=== PATIENT | female | born 1985 | race Hispanic/Latino ===

== ENCOUNTER 2017-05-05 10:32 | Inpatient (IN) | payer MEDICAID, OTHER ==
[2017-05-05 11:17] LABS: BASO % 0.6 % (0.0-2.0); EOS % 0.5 % (0.0-4.0); HEMATOCRIT 41.8 % (34.0-47.0); LYMPH % 17.4 % (20.0-40.0); MEAN CORPUSCULAR HEMOGLOBIN 31.2 pg (27.0-31.0); MEAN CORPUSCULAR HGB CONC 34.7 g/dL (33.0-37.0); MEAN PLATELET VOLUME 7.8 fL (7.2-11.7); MONO # 0.3 K/uL (0.0-0.8); MONO % 6.1 % (0.0-10.0); RED CELL DISTRIBUTION WIDTH 12.8 % (11.5-14.5); WHITE BLOOD COUNT 5.6 K/uL (4.8-10.8)
[2017-05-05 11:29] LABS: ALB/GLOB RATIO 1.5 (1.0-2.1); ALCOHOL SERUM < 10 mg/dl (0-10); ALKALINE PHOSPHATASE 53 U/L (38-126); ALT/SGPT 29 U/L (9-52); AST/SGOT 22 U/L (14-36); BILIRUBIN,TOTAL 0.4 mg/dL (0.2-1.3); BLOOD UREA NITROGEN 10 mg/dL (7-17); CALCIUM 10.3 mg/dl (8.6-10.4); CARBON DIOXIDE 26 mmol/L (22-30); CHLORIDE 101 mmol/L (98-107); GFR AFRICAN-AMERICAN > 60; GLUCOSE,RANDOM 89 mg/dL (65-105); POTASSIUM 3.9 mmol/L (3.6-5.2); SODIUM 144 mmol/L (132-148); TOTAL PROTEIN 8.3 g/dL (6.3-8.3)
[2017-05-05 11:31] LABS: RBC URINE 15 /hpf (0-3); URINE BACTERIA RARE (<OCC); URINE BILIRUBIN NEGATIVE (NEGATIVE); URINE BLOOD 2+ (NEGATIVE); URINE COLOR Yellow (YELLOW); URINE GLUCOSE (UA) NORMAL (Normal); URINE KETONE NEGATIVE (NEGATIVE); URINE LEUKOCYTE ESTERASE 2+ Leu/uL (Negative); URINE PROTEIN NEGATIVE (NEGATIVE); URINE UROBILINOGEN NORMAL mg/dL (0.2-1.0); WBC URINE 10 /hpf (0-5)
--- NOTE | 2017-05-05 12:09 | C.PDOC ---
History Of Present Illness 31 y/o female presents to ED requesting detox from heroin, alcohol, and Xanax. Notes that last use was yesterday. (+)nausea (+)urinary frequency. Of note, pt states that she was recently treated for UTI. Otherwise, denies any dysuria, hematuria, back pain, abdominal pain, vomiting, diarrhea, fever, chest pain, or shortness of breath. Time Seen by Provider: 05/05/17 10:49 Chief Complaint (Nursing): Substance Abuse History Per: Patient History/Exam Limitations: no limitations Onset/Duration Of Symptoms: Gradual Current Symptoms Are (Timing): Still Present Suicide/Self Injury Attempted (Context): None Modifying Factor(s): Alcohol, Other (Xanax, heroin) Severity: None Pain Scale Rating Of: 0 Associated Symptoms: denies: Suicidal Thoughts, Suicidal Plan Involuntary Hold By: None Recent travel outside of the [place]: No Additional History Per: Patient Past Medical History Reviewed: Historical Data, Nursing Documentation, Vital Signs Vital Signs: Last Vital Signs Temp 98.0 F 05/05/17 10:35 Pulse 82 05/05/17 10:35 Resp 18 05/05/17 10:35 BP 112/74 05/05/17 10:35 Pulse Ox 100 05/05/17 12:24 - Medical History PMH: Anxiety, Seizures (DUE TO XANAX W/D) Family History: States: No Known Family Hx - Social History Hx Alcohol Use: Yes Hx Substance Use: Yes - Immunization History Hx Tetanus Toxoid Vaccination: No Hx Influenza Vaccination: No Hx Pneumococcal Vaccination: No Review Of Systems Constitutional: Negative for: Fever, Chills Cardiovascular: Negative for: Chest Pain, Palpitations, Light Headedness Respiratory: Negative for: Cough, Shortness of Breath Gastrointestinal: Positive for: Nausea. Negative for: Vomiting, Abdominal Pain , Diarrhea Genitourinary: Positive for: Frequency. Negative for: Dysuria, Incontinence, Hematuria, Vaginal Discharge Musculoskeletal: Negative for: Back Pain Skin: Negative for: Rash Physical Exam - Physical Exam Additional Physical Exam Comments: Constitutional: No acute distress. Thin. Mildly anxious. Head: Normocephalic. Atraumatic. Eyes: PERRL. EOMI ENT: Moist mucous membranes. Neck: Supple. Cardiovascular: Regular rate and rhythm. No murmur. Chest: No tenderness. Respiratory: Clear to auscultation bilaterally. No wheezing, rhonchi, or rales. GI: Soft. Nontender. Nondistended. Normoactive bowel sounds. Back: No CVA tenderness. Musculoskeletal: No swelling of extremities. No calf tenderness. Skin: No rash. Neurologic: Alert, no gross focal deficit. ED Course And Treatment - Laboratory Results Result Diagrams: 05/05/17 11:13 05/05/17 11:13 O2 Sat by Pulse Oximetry: 100 Progress Note: Blood work, UA ordered and reviewed. Medical Decision Making Medical Decision Making: p[t with uti symptoms, tx recently for uti with bactrim, no back pain, ab pain or fever, will start on macrobid after getting urine culture,recmommend 100 mg macrobid bid x 7 days while on detox floor. 1222 pm pt is medically cleared for detox admission Disposition Discussed With .: Misty Lino Doctor Will See Patient In The: Hospital - Disposition Disposition Time: 12:23 Condition: STABLE - Clinical Impression Clinical Impression: Opioid use disorder, severe, dependence, Benzodiazepine dependence, Alcohol use disorder, moderate, dependence - PA / SATELLITE MANAGER / Resident Statement MD/DO has reviewed & agrees with the documentation as recorded. - Scribe Statement The provider has reviewed the documentation as recorded by the Rickyibmatthew Malone All medical record entries made by the Chiara were at my direction and personally dictated by me. I have reviewed the chart and agree that the record accurately reflects my personal performance of the history, physical exam, medical decision making, and the department course for this patient. I have also personally directed, reviewed, and agree with the discharge instructions and disposition. Decision To Admit - . Patient Diagnosis: Opioid use disorder, severe, dependence, Benzodiazepine dependence, Alcohol use disorder, moderate, dependence
--- NOTE | 2017-05-05 15:51 | PCM.PSYCH ---
Initial Psychiatric Evaluation - Initial Psychiatric Evaluation Type of Admission: Voluntary Legal Status: Capacity Chief Complaint (in patient's own words): "My drug problem is out of control" History of Present Illness and Precipitating Events: Patient is a 31 year old female, single without children, living with her boyfriend in [facility]), who currently works as a case planner. Patient states she came here for detox today because her "drug problem is out of control." Patient admits to snorting 15 bags heroin/day for the last 3 months. Last IV use was 2 months ago. Her first ever use was when she was 25 years old. Last use was yesterday. Patient also uses Xanax 2-4mg/day, since age 20. She uses 2 bottles of cocaine/ day since age 20. She states that she drinks 2 glasses of wine/day. Patient denies use of marijuana, pain killers, PCP, LSD or ectasy. She smokes cigarettes 1ppd. Patient's longest period of sobriety from heroin and alcohol was 8-9 months starting in October 2015. She has a history of detox and rehab a combined 4x in the past; her last detox was 2-3 months ago at [facility]. She states that she relapsed within 1 day after that admission. She expresses the wish for after care following this admission so she does not relapse. She states she has been on Suboxone in the past (dose: 8mg/day) but stopped it because she didn't want to be addicted to anything and still felt withdrawal symptoms while taking it. She has never been on methadone before. At present, patient states that her withdrawal symptoms are very bad. She reports feeling diffuse body aches, runny nose, watery eyes, some nausea, shakes , headache, heart racing, the sensation of bugs crawling under her skin, and seeing some flashing lights. She denies vomiting, diarrhea, or auditory/visual hallucinations. Patient has a past psychiatric history of anxiety for which she has been on Seroquel and Neurontin. She states that she's been taking the Seroquel regularly but has not been recently taking Neurontin. Psych history: anxiety Denies: depression, bipolar, schizophrenia Drug use: see above ETOH: see above Tobacco: 1 ppd Medical history: seizures due to withdrawal from benzos denies other medical history Family history: 2 cousins committed suicide 1 aunt has substance use disorder Social history: Single No children Lives in [place], [place] with boyfriend Works as a case planner Not on probation/parole Current Medications: Active Medications Generic Name Dose Route Start Last Admin Trade Name Freq PRN Reason Stop Dose Admin Al Hydrox/Mg Hydrox/Simethicone 30 ml 05/05/17 14:04 Maalox 30 Ml PO TID PRN Indigestion / Heartburn Chlordiazepoxide 0 mg 05/05/17 18:00 Librium PO 05/09/17 17:59 Q6 RADHA Taper Chlordiazepoxide 25 mg 05/05/17 14:21 Librium PO Q4H PRN Alcohol Withdrawal Clonidine HCl 0.1 mg 05/05/17 14:21 Catapres PO Q4H PRN Symptoms of alcohol withdrawl Gabapentin 300 mg 05/05/17 14:45 Neurontin PO TID RADHA Hydroxyzine HCl 50 mg 05/05/17 14:05 Atarax PO Q6H PRN Anxiety Ibuprofen 600 mg 05/05/17 14:05 Motrin Tab PO Q6H PRN Pain, moderate (4-7) Loperamide HCl 2 mg 05/05/17 14:04 Imodium PO Q8 PRN Diarrhea Methadone HCl 0 mg 05/06/17 10:00 Methadone PO 05/10/17 09:59 Q24H RADHA Taper Nitrofurantoin Macrocrystals 100 mg 05/05/17 19:00 Macrobid PO Q12H RADHA Ondansetron HCl 4 mg 05/05/17 14:04 Zofran Tab PO Q8 PRN Nausea/Vomiting Quetiapine Fumarate 100 mg 05/05/17 22:00 Seroquel PO HS RADHA Trazodone HCl 50 mg 05/05/17 14:05 Desyrel PO HS PRN Insomnia Past Psychiatric History - Past Psychiatric History Pertinent Medical Hx (Current Medical&Sleep Prob, Allergies): Allergies Allergy/AdvReac Type Severity Reaction Status Date / Time No Known Allergies Allergy Verified 05/05/17 10:37 Gabapentin [Neurontin] 400 mg PO TID 05/05/17 QUEtiapine [SEROquel] 100 mg PO HS 05/05/17 Review of Systems - Neurological Neurological: UNREMARKABLE - Psychiatric Psychiatric: Anxiety. absent: Depression, Homicidal Ideation, Suicidal Ideation , Visual Hallucinations Mental Status Examination - Personal Presentation Personal Presentation: Looks stated age - Affect Affect: Constricted - Motor Activity Motor Activity: Calm - Reliability in Providing Information Reliability in Providing Information: Good - Speech Speech: Organized - Mood Mood: Anxious - Formal Thought Process Formal Thought Process: No Impairment - Cognitive Functions Orientation: Person, Place, Situation, Time Sensorium: Alert Attention/Concentration: Attentive Abstract Thinking: Darby Estimate of Intelligence: Average Judgement: Intact, as evidence by: Insight regarding need for hospitalization Memory: Recent intact, as evidence by: Ability to recall events of the day, Remote intact, as evidenced by: Abilit to recall sig. life events - Risk Risk: Seizure, Withdrawal - Strength & Assets Inventory Strength & Assets Inventory: Employment status DSM 5 DX - DSM 5 DSM 5 Diagnosis: Opioid use disorder, severe Opioid withdrawal Sedative, hypnotic or anxiolytic use disorder Sedative, hypnotic or anxiolytic withdrawal Alcohol use disorder Alcohol withdrawal Tobacco use disorder Anxiety disorder - Recommended/Plan of Treatment Treatment Recommendations and Plan of Treatment: Methadone detox As needed medications Gabapentin for augmentation Attend groups and activities Supportive therapy and psychoeduation [place] for abstinence CBT for relapse prevention Encourage MAT Refer to rehab or IOP Attend self-help groups as well Librium detox Gabapentin for augmentation As needed meds and vitamins Attend groups and activities Supportive therapy and psychoeduation [place] for abstinence, CBT for relapse prevention Encourage MAT Refer to rehab or IOP Attend self-help groups as well Anxiety disorder - Continue medications - Support and psychoeducation daily - Attend groups and activities daily - After care planning by LANDON Tobacco use disorder - Nicoderm 1 patch TD daily Projected ELOS: 4-5 days Prognosis: good with treatment Discharge Plan and Discharge Criteria: no withdrawal symptoms - Smoking Cessation Smoking Cessation Initiated: Yes
--- NOTE | 2017-05-05 16:16 | PCM.BM ---
Treatment Plan Problems - Problems identified on initial assessmt Opiates abuse Date Initiated: 05/05/17 Time Initiated: 13:00 Assessment reference: NA Status: Active Treatment assets and liabiliti Patient Assests: adapts well, ADL independent, physically healthy Patient Liabilities: substance abuse (Opiates, cocaine, benzodiazepine.) - Milieu Protocol Maintain good personal hygiene: daily Encourage regular showers, daily Remind patient to perform daily oral care Maintain personal safety: every shift Educate patient to report safety concerns to staff, every shift Monitor environment for contraband/sharps Medication safety: Monitor for expected outcome, potential side effects: every shift, Assess barriers to learning: every shift, Assess readiness for medication education: every shift Milieu Narrative: Methadone detox As needed medications Gabapentin for augmentation Attend groups and activities Supportive therapy and psychoeduation [place] for abstinence CBT for relapse prevention Encourage MAT Refer to rehab or IOP Attend self-help groups as well Librium detox Gabapentin for augmentation As needed meds and vitamins Attend groups and activities Supportive therapy and psychoeduation [place] for abstinence, CBT for relapse prevention Encourage MAT Refer to rehab or IOP Attend self-help groups as well Anxiety disorder - Continue medications - Support and psychoeducation daily - Attend groups and activities daily - After care planning by LANDON Tobacco use disorder - Nicoderm 1 patch TD daily Discharge/Continuing Care - Treatment Team Participation Patient/Family/SO Statement: Methadone detox As needed medications Gabapentin for augmentation Attend groups and activities Supportive therapy and psychoeduation [place] for abstinence CBT for relapse prevention Encourage MAT Refer to rehab or IOP Attend self-help groups as well Librium detox Gabapentin for augmentation As needed meds and vitamins Attend groups and activities Supportive therapy and psychoeduation [place] for abstinence, CBT for relapse prevention Encourage MAT Refer to rehab or IOP Attend self-help groups as well Anxiety disorder - Continue medications - Support and psychoeducation daily - Attend groups and activities daily - After care planning by LANDON Tobacco use disorder - Nicoderm 1 patch TD daily
--- NOTE | 2017-05-06 15:40 | PCM.PYCHPN ---
Psychiatric Progress Note - Psychiatric Progress Note Patient seen today, length of contact: 15 minutes Patient Chief Complaint: "I'm still feeling a little sick" Problems Identified/Issues Discussed: The patient was seen, chart reviewed, case discussed with staff. The patient is compliant with medications and reports no side effects. Patient states that she still feels a little sick, but was able to sleep last night after given Librium. She states that she vomited 1x this morning and was given Zofran. Patient reports overall improvement in her withdrawal symptoms, but still has some muscle aches, shakes, a little bit of skin itching, some heart racing, and anxiety that is a little improved from yesterday. Her runny nose and watery eyes have improved. She denies auditory/visual hallucinations and headache. Patient states that she wants to have an appetite so she can eat. She also states that she is more motivated to take this detox seriously than she has been in the past. Symptoms are improving, but patient needs more time to stabilize. After care discussed, support and psychoeducation given. Medication Change: Yes (detox changes daily) Medical Record Reviewed: Yes Mental Status Examination - Cognitive Function Orientation: Person, Place, Situation, Time Memory: Intact Attention: WNL Concentration: WNL Association: WNL Fund of Knowledge: WNL - Mood Mood: Anxious - Affect Affect: Constricted - Speech Speech: Appropriate - Formal Thought Process Formal Thought Process: No Impairment - Suicidal Ideation Suicidal Ideation: No - Homicidal Ideation Homicidal Ideation: No Goal/Treatment Plan - Goal/Treatment Plan Need for Continued Stay: Remain at risks for inpatient hospitalization, Discharge may exacerbated symptoms Progress Toward Problem(s) and Goals/Treatment Plan: Methadone detox As needed medications Gabapentin for augmentation Attend groups and activities Supportive therapy and psychoeduation [place] for abstinence CBT for relapse prevention Encourage MAT Refer to rehab or IOP Attend self-help groups as well Librium detox Gabapentin for augmentation As needed meds and vitamins Attend groups and activities Supportive therapy and psychoeduation [place] for abstinence, CBT for relapse prevention Encourage MAT Refer to rehab or IOP Attend self-help groups as well Anxiety disorder - Continue medications - Support and psychoeducation daily - Attend groups and activities daily - After care planning by LANDON Tobacco use disorder - Nicoderm 1 patch TD daily
[2017-05-07] MEDS: Aluminum Hydroxide/Magnesium Hydroxide Susp (30 mL) PO PRN ×3 (05:53→18:01)
[2017-05-07] MEDS: Pantoprazole 20 mg EC Tab PO SCH (10:15)
--- NOTE | 2017-05-07 11:21 | PCM.PYCHPN ---
Psychiatric Progress Note - Psychiatric Progress Note Patient seen today, length of contact: 15 minutes Patient Chief Complaint: I am feeling extremely anxious.' Problems Identified/Issues Discussed: Patient seen and evaluated, chart reviewed and discussed with the nurse. Patient remained isolated, and withdrawn. She reports very high anxiety and reports withdrawal symptoms including nausea, vomiting, headaches, cramps, joint pains and sweating. She reports her symptoms are getting worse. She denies any SI/HI or any AVH. She is asking for more meds for her anxiety and withdrawal s/s. She needs more time for stabilization. Supportive therapy and psychoeducation were given. Medication Change: Yes (detox changes daily) Medical Record Reviewed: Yes Mental Status Examination - Cognitive Function Orientation: Person, Place, Situation, Time Memory: Intact Attention: WNL Concentration: Poor Association: WNL Fund of Knowledge: Poor - Mood Mood: Anxious - Affect Affect: Constricted - Speech Speech: Appropriate - Formal Thought Process Formal Thought Process: No Impairment - Suicidal Ideation Suicidal Ideation: No - Homicidal Ideation Homicidal Ideation: No Goal/Treatment Plan - Goal/Treatment Plan Need for Continued Stay: Remain at risks for inpatient hospitalization, Discharge may exacerbated symptoms, Severe functional impairment Progress Toward Problem(s) and Goals/Treatment Plan: Methadone detox As needed medications Gabapentin for augmentation Attend groups and activities Supportive therapy and psychoeduation [place] for abstinence CBT Refer to rehab or IOP Attend self-help groups as well Librium detox Gabapentin for augmentation As needed meds and vitamins Attend groups and activities Supportive therapy and psychoeduation [place] for abstinence, CBT Refer to rehab or IOP Attend self-help groups as well Anxiety disorder - Continue medications - Support and psychoeducation daily - Attend groups and activities daily - After care planning by LANDON Chávez Tobacco use disorder - Nicoderm 1 patch TD daily UTI Continue antibiotics - Smoking Cessation Smoking Cessation Initiated: No
[2017-05-08] MEDS: Pantoprazole 20 mg EC Tab PO SCH (10:33)
--- NOTE | 2017-05-08 11:44 | PCM.PYCHPN ---
Psychiatric Progress Note - Psychiatric Progress Note Patient seen today, length of contact: 15 minutes Patient Chief Complaint: I am feeling little better.' Problems Identified/Issues Discussed: Patient seen and evaluated, chart reviewed and discussed with the nurse. As per the staff, pt has received multiple shots of zofran for her vomiting. She reports some improvement in her anxiety but still reports withdrawal symptoms including nausea, vomiting, headaches, cramps, and joint pains. She reports her symptoms are little better than yesterday. She denies any SI/HI or any AVH. She is taking meds but denies any side effects. She needs more time for stabilization. Supportive therapy and psychoeducation were given. Medication Change: Yes (detox changes daily) Medical Record Reviewed: Yes Mental Status Examination - Cognitive Function Orientation: Person, Place, Situation, Time Memory: Intact Attention: WNL Concentration: Poor Association: WNL Fund of Knowledge: Poor - Mood Mood: Anxious - Affect Affect: Constricted - Speech Speech: Appropriate - Formal Thought Process Formal Thought Process: No Impairment - Suicidal Ideation Suicidal Ideation: No - Homicidal Ideation Homicidal Ideation: No Goal/Treatment Plan - Goal/Treatment Plan Need for Continued Stay: Remain at risks for inpatient hospitalization, Discharge may exacerbated symptoms Progress Toward Problem(s) and Goals/Treatment Plan: Methadone detox As needed medications Gabapentin for augmentation Attend groups and activities Supportive therapy and psychoeduation [place] for abstinence CBT Refer to rehab or IOP Attend self-help groups as well Librium detox Gabapentin for augmentation As needed meds and vitamins Attend groups and activities Supportive therapy and psychoeduation [place] for abstinence, CBT Refer to rehab or IOP Attend self-help groups as well Anxiety disorder - Continue medications - Support and psychoeducation daily - Attend groups and activities daily - After care planning by LANDON Chávez Tobacco use disorder - Nicoderm 1 patch TD daily UTI Continue antibiotics - Smoking Cessation Smoking Cessation Initiated: No
--- NOTE | 2017-05-08 20:17 | PCM.BM ---
<Dereck Shafer - Last Filed: 05/08/17 20:16> Treatment Plan Problems - Problems identified on initial assessmt Opiates abuse Date Initiated: 05/05/17 Time Initiated: 13:00 Assessment reference: NA Status: Active Treatment assets and liabiliti Patient Assests: adapts well, ADL independent, physically healthy Patient Liabilities: substance abuse (Opiates, cocaine, benzodiazepine.) - Milieu Protocol Maintain good personal hygiene: daily Encourage regular showers, daily Remind patient to perform daily oral care Maintain personal safety: every shift Educate patient to report safety concerns to staff, every shift Monitor environment for contraband/sharps Medication safety: Monitor for expected outcome, potential side effects: every shift, Assess barriers to learning: every shift, Assess readiness for medication education: every shift Milieu Narrative: Methadone detox As needed medications Gabapentin for augmentation Attend groups and activities Supportive therapy and psychoeduation [place] for abstinence CBT for relapse prevention Encourage MAT Refer to rehab or IOP Attend self-help groups as well Librium detox Gabapentin for augmentation As needed meds and vitamins Attend groups and activities Supportive therapy and psychoeduation [place] for abstinence, CBT for relapse prevention Encourage MAT Refer to rehab or IOP Attend self-help groups as well Anxiety disorder - Continue medications - Support and psychoeducation daily - Attend groups and activities daily - After care planning by LANDON Tobacco use disorder - Nicoderm 1 patch TD daily Discharge/Continuing Care - Treatment Team Participation Patient/Family/SO Statement: Methadone detox As needed medications Gabapentin for augmentation Attend groups and activities Supportive therapy and psychoeduation [place] for abstinence CBT for relapse prevention Encourage MAT Refer to rehab or IOP Attend self-help groups as well Librium detox Gabapentin for augmentation As needed meds and vitamins Attend groups and activities Supportive therapy and psychoeduation [place] for abstinence, CBT for relapse prevention Encourage MAT Refer to rehab or IOP Attend self-help groups as well Anxiety disorder - Continue medications - Support and psychoeducation daily - Attend groups and activities daily - After care planning by LANDON Tobacco use disorder - Nicoderm 1 patch TD daily Treatment Plan Review - Problem Opiates abuse Time Initiated: 13:00 <Misty Lino - Last Filed: 05/09/17 08:52> - Diagnosis (1) Alcohol use disorder, moderate, dependence Status: Acute Interventions: 05/09/17 08:52 * Assess 7x/week regarding severity of withdrawal * Educate regarding risks, benefits, side effects and alternatives of medications * Use Motivational Interviewing for abstinence * Use CBT for relapse prevention * Medication management for withdrawal symptoms * Encourage medication assisted treatment * (2) Opioid use disorder, severe, dependence Status: Acute Interventions: 05/09/17 08:52 * Assess 7x/week regarding severity of withdrawal * Educate regarding risks, benefits, side effects and alternatives of medications * Use Motivational Interviewing for abstinence * Use CBT for relapse prevention * Medication management for withdrawal symptoms * Encourage medication assisted treatment * (3) Benzodiazepine dependence Status: Acute Interventions: 05/09/17 08:52 * Assess 7x/week regarding severity of withdrawal * Educate regarding risks, benefits, side effects and alternatives of medications * Use Motivational Interviewing for abstinence * Use CBT for relapse prevention * Medication management for withdrawal symptoms * Encourage medication assisted treatment *
[2017-05-09] MEDS: Aluminum Hydroxide/Magnesium Hydroxide Susp (30 mL) PO PRN (03:52)
--- NOTE | 2017-05-09 08:51 | PCM.PYCHDC ---
Mental Status Examination - Mental Status Examination Orientation: Person, Place, Situation, Time Memory: Intact Mood: Anxious Affect: Constricted Speech: Appropriate Attention: WNL Concentration: WNL Association: WNL Fund of Knowledge: WNL Formal Thought Process: No Impairment Suicidal Ideation: No Current Homicidal Ideation?: No Discharge Summary - Discharge Note Reason for Hospitalization: Detox from heroin mostly. Psychiatric History (includes Medical, Family, Personal Hx): Hx of substance use disorder and anxiety Consultations:: List each consultation separately and include: 1. Reason for request. 2. Findings. 3. Follow-up Summary of Hospital Course include:: 1. Description of specific treatment plan utilized for patients during their course of treatmen. 2. Summarize the time- course for resolution of acute symptoms and/or regressed behaviors. 3. Describe issues identified and worked on during hospitalization. 4. Describe medication utilized. 5. Describe medical problems identified and treated. 6. Reassessment of suicide risk Summary of Hospital Course: The patient was admitted and started on treatment with psychotherapy, support, psychoeducation and medications. MN and CBT used. The patient attended groups and activities, as well as milieu therapy. All the risks and benefits of medications are discussed and the patient understood and agreed. The patient improved with the treatments provided. Patient remains anxious about her condition, and expresses that she is worried about getting sick on her flight to her treatment program today. Patient was reassured and educated about managing anxiety and withdrawal symptoms. After care discussed with the patient. Her family found a rehab for her at [facility] in [place] or [place], and she will fly today but she continues to try to sabotage it. She is not that sick but likely makes herself throw up, asks for benzos and other meds constantly. MN used and psychoed given - Final Diagnosis (DSM 5) Condition upon Discharge: STABLE DSM 5: Opioid use disorder, severe Opioid withdrawal Sedative, hypnotic or anxiolytic use disorder Sedative, hypnotic or anxiolytic withdrawal Alcohol use disorder Alcohol withdrawal Tobacco use disorder Anxiety disorder Disposition: REHAB FACILITY/REHAB UNIT Follow-up Treatment Plan: Continue below medications after discharge if allowed by treatment program: protonix, macrobid to complete UTI tx, gabapentin and seroquel. Follow after care plan as discussed. Use relapse prevention skills. Return to ED or call 911 if suicidal, homicidal or symptoms relapse. Stay away from stress, alcohol and drugs. See primary doctor once a year. - Smoking Cessation Smoking Cessation Medication prescribed: No - Antipsychotic Medications Pt discharged on 2 or more routine antipsychotic medications: No
[2017-05-09] MEDS: Pantoprazole 20 mg EC Tab PO SCH (09:13)
[2017-05-09 10:03] VITALS: BP 116/81; PULSE 79; RESP 20; TEMP 98.2; O2SAT 100
== END 2017-05-09 13:00 | DRG 744 ==
LOC: C.ER 10:32 → C.7D 12:25
PROVIDERS: ADMIT Psychiatry & Neurology Psychiatry; ATTEND Psychiatry & Neurology Psychiatry
PROC: HZ2ZZZZ Detoxification Services for Substance Abuse Treatment (ICD-10-PCS; principal; 2017-05-05)
PROC: HZ59ZZZ Individual Psychotherapy for Substance Abuse Treatment, Supportive (ICD-10-PCS; 2017-05-05)
PROC: HZ46ZZZ Group Counseling for Substance Abuse Treatment, Psychoeducation (ICD-10-PCS; 2017-05-05)
PROC: HZ90ZZZ Pharmacotherapy for Substance Abuse Treatment, Nicotine Replacement (ICD-10-PCS; 2017-05-05)
DX: F11.23 Opioid dependence with withdrawal (principal); N39.0 Urinary tract infection, site not specified; F10.239 Alcohol dependence with withdrawal, unspecified; F13.239 Sedative, hypnotic or anxiolytic dependence with withdrawal, unspecified; F17.210 Nicotine dependence, cigarettes, uncomplicated; F41.9 Anxiety disorder, unspecified